=== PATIENT | female | born 1985 | race Caucasian/White ===

== ENCOUNTER → 2017-07-25 | Outpatient (CLI) | payer MEDICARE, OTHER ==
[~2017-07-25] MED LIST: HYDR-3240 PO; HYDR50CA PO; IBUP-1222 PO; PREN1TAB60 PO; SENN-1 PO; URSO300C27 PO
== END | disposition home or self-care (01) ==
LOC: CFH 13:27
PROVIDERS: ATTEND Obstetrics & Gynecology
DX: M79.605 Pain in left leg (principal); M79.89 Other specified soft tissue disorders; Z86.718 Personal history of other venous thrombosis and embolism

== ENCOUNTER 2017-08-05 15:31 | Emergency (ER) | payer MEDICARE, OTHER ==
[~2017-08-05] VITALS: Ht 162.6 cm; Wt 72.7 kg
[2017-08-05] MEDS ORDERED: METOCLOPRAMIDE 5 MG/ML, 2ML IVPush ONE (16:00)
[2017-08-05] MEDS ORDERED: SODIUM CHLORIDE FLUSH 10ML SYR IVF ONE (16:00)
[2017-08-05 16:14] LABS: BASOPHILS # (AUTO) 0.08 x10^3/uL (0-0.1); BASOPHILS % (AUTO) 1 % (0-1); EOSINOPHILS % (AUTO) 2 % (1-7); LYMPHOCYTES # (AUTO) 2.23 x10^3/uL (1-3.4); LYMPHOCYTES % (AUTO) 21 % (22-44); MD NO; MEAN CORPUSCULAR HEMOGLOBIN 30.4 pg (27.0-34.8); MEAN CORPUSCULAR HGB CONC 33.3 g/dL (32.4-35.8); MEAN CORPUSCULAR VOLUME 91.3 fL (80-100); MEAN PLATELET VOLUME 7.3 fL (7.4-10.4); MONOCYTES # (AUTO) 0.44 x10^3/uL (0.2-0.8); MONOCYTES % (AUTO) 4 % (2-9); NEUTROPHILS # (AUTO) 7.52 x10^3/uL (1.8-6.8); NEUTROPHILS % (AUTO) 72 % (42-75); PLATELET COUNT 397 x10^3/uL (130-400); RED BLOOD COUNT 5.06 x10^6/uL (3.82-5.3); RED CELL DISTRIBUTION WIDTH 12.6 % (9.6-15.2)
[2017-08-05 16:24] LABS: ALANINE AMINOTRANSFERASE 40 U/L (12-78); ALBUMIN 3.5 g/dL (3.4-5.0); ANION GAP 10 mmol/L (5-15); CHLORIDE 107 mmol/L (98-107); CREATININE 0.64 mg/dL (0.55-1.02)
[2017-08-05 16:25] LABS: ALKALINE PHOSPHATASE 78 U/L (45-117); BILIRUBIN,TOTAL 0.2 mg/dL (0.2-1.0); TOTAL PROTEIN 7.3 g/dL (6.4-8.2)
[2017-08-05] MEDS ORDERED: KETOROLAC 30 MG/1 ML IVPush ONE (16:30)
[2017-08-05] MEDS ORDERED: KETOROLAC 30 MG/1 ML ONE (16:33)
[2017-08-05] MEDS ORDERED: METOCLOPRAMIDE 5 MG/ML, 2ML ONE (16:33)
[2017-08-05] MEDS ORDERED: OMNIPAQUE 350 MG/ML, 100ML BOTTLE ONE (17:37)
[2017-08-05 18:02] LABS: CULTURE INDICATED? YES; MICROSCOPIC INDICATED
[2017-08-05] MEDS ORDERED: SODIUM CHLORIDE 0.9% 1,000ML IVBOLUS ONE (18:30)
[2017-08-05] MEDS ORDERED: CEFTRIAXONE PMX 1GM/50ML 50 ML IV ONE (19:00)
[2017-08-05] MEDS ORDERED: CEFTRIAXONE PMX 1GM/50ML 50 ML ONE (19:01)
[2017-08-05 20:00] VITALS: BP 108/54
== END 2017-08-05 20:04 | disposition home or self-care (01) ==
LOC: ED 19:58
DX: N10 Acute pyelonephritis (principal); R19.7 Diarrhea, unspecified; R51 Headache; Z90.49 Acquired absence of other specified parts of digestive tract; Z86.718 Personal history of other venous thrombosis and embolism
CPT/HCPCS: 36415; 71045; 74177; 76700; 80053; 81001; 83690; 85025; 87086; 87147; 93005; 96361; 96365; 96375; 99285; J0696; J1885; J2765; J7030; Q9967

== ENCOUNTER → 2018-04-07 | Outpatient (CLI) | payer MEDICARE, OTHER ==
[~2018-04-07] MED LIST changes: -SENN-1 PO; +SENN-92 PO
== END | disposition home or self-care (01) ==
LOC: CFH 16:05
PROVIDERS: ATTEND Family Medicine
DX: M47.817 Spondylosis without myelopathy or radiculopathy, lumbosacral region (principal); M48.061 Spinal stenosis, lumbar region without neurogenic claudication; M51.26 Other intervertebral disc displacement, lumbar region
CPT/HCPCS: 72148

== ENCOUNTER 2018-04-23 18:26 | Emergency (ER) | payer MEDICARE, OTHER ==
[~2018-04-23] VITALS: Ht 160 cm; Wt 72.4 kg
[2018-04-23 18:35] VITALS: BP 105/63
== END 2018-04-23 20:09 | disposition home or self-care (01) ==
LOC: ED 19:14
DX: N61.1 Abscess of the breast and nipple (principal); Z85.3 Personal history of malignant neoplasm of breast; Z90.49 Acquired absence of other specified parts of digestive tract; Z86.718 Personal history of other venous thrombosis and embolism
CPT/HCPCS: 76642; 99284

== ENCOUNTER → 2018-05-26 | Outpatient (CLI) | payer MEDICARE, OTHER | END | disposition home or self-care (01) | LOC: CFH 13:16 | PROVIDERS: ATTEND Nurse Practitioner Family | DX: M47.812 Spondylosis without myelopathy or radiculopathy, cervical region (principal); M48.02 Spinal stenosis, cervical region; M25.78 Osteophyte, vertebrae; R20.2 Paresthesia of skin | CPT/HCPCS: 70551; 72141 ==

== ENCOUNTER 2018-07-04 14:50 | Outpatient (CLI) | payer MEDICARE, OTHER | END 2018-07-04 23:59 | disposition home or self-care (01) | LOC: CFH 14:50 | PROVIDERS: ATTEND Physician Assistant Medical | DX: I37.1 Nonrheumatic pulmonary valve insufficiency (principal); R07.9 Chest pain, unspecified; I10 Essential (primary) hypertension | CPT/HCPCS: 93306 ==

== ENCOUNTER 2018-09-19 17:17 | Emergency (ER) | payer MEDICARE, OTHER ==
[~2018-09-19] VITALS: Ht 160 cm; Wt 71.8 kg
[~2018-09-19 17:17] MED LIST changes: +CBD PO; +LACT1CAP35 PO; +[UNRECOGNIZED DRUG - OTHER] PO; +[UNRECOGNIZED DRUG - OTHER] PO; +[UNRECOGNIZED DRUG - OTHER] PO; +[UNRECOGNIZED DRUG - OTHER] PO; +[UNRECOGNIZED DRUG - OTHER] PO; +[UNRECOGNIZED DRUG - OTHER] PO; +albuterol inhaler; +ashwagandha PO; +turmeric PO
--- NOTE | 2018-09-19 17:48 | NUR ---
FEVER, NAUSEA, FATIGUE, BLACK TARRY STOOL POST SURGERY HYSTEROSCOPY WITH D+C ON 09/17/2018
--- NOTE | 2018-09-19 18:39 | NUR ---
PT AMBULATORY TO THE BATHROOM WITH STEADY GAIT TO PROVIDE URINE SAMPLE.
[2018-09-19 18:44] LABS: BASOPHILS # (AUTO) 0.03 x10^3/uL (0-0.1); BASOPHILS % (AUTO) 0 % (0-1); EOSINOPHILS # (AUTO) 0.26 x10^3/uL (0-0.4); EOSINOPHILS % (AUTO) 3 % (1-7); LYMPHOCYTES # (AUTO) 1.69 x10^3/uL (1-3.4); LYMPHOCYTES % (AUTO) 17 % (22-44); MD NO; MEAN CORPUSCULAR HEMOGLOBIN 30.7 pg (27.0-34.8); MEAN CORPUSCULAR HGB CONC 32.6 g/dL (32.4-35.8); MEAN CORPUSCULAR VOLUME 94.1 fL (80-100); MEAN PLATELET VOLUME 8.3 fL (7.4-10.4); MONOCYTES # (AUTO) 0.69 x10^3/uL (0.2-0.8); MONOCYTES % (AUTO) 7 % (2-9); NEUTROPHILS # (AUTO) 7.15 x10^3/uL (1.8-6.8); NEUTROPHILS % (AUTO) 73 % (42-75); PLATELET COUNT 255 x10^3/uL (130-400); RED BLOOD COUNT 4.47 x10^6/uL (3.82-5.3); RED CELL DISTRIBUTION WIDTH 13.4 % (9.6-15.2)
[2018-09-19 19:00] LABS: ALBUMIN 3.7 g/dL (3.4-5.0); ANION GAP 6 mmol/L (5-15); CALCIUM 8.9 mg/dL (8.5-10.1); CHLORIDE 111 mmol/L (98-107)
[2018-09-19 19:06] LABS: ALANINE AMINOTRANSFERASE 118 U/L (12-78); ALKALINE PHOSPHATASE 82 U/L (45-117); BILIRUBIN,TOTAL 0.5 mg/dL (0.2-1.0); CREATININE 0.77 mg/dL (0.55-1.02); TOTAL PROTEIN 6.8 g/dL (6.4-8.2)
--- NOTE | 2018-09-19 19:06 | NUR ---
REPORT TO RAHUL LUA
--- NOTE | 2018-09-19 19:07 | NUR ---
REPORT RECEIVED FROM TIMOTHY LUA.
[2018-09-19 19:08] LABS: MICROSCOPIC AUTO
[2018-09-19 19:20] LABS: CULTURE INDICATED? YES
[2018-09-19] MEDS ORDERED: ONDANSETRON ODT 4 MG ONE (20:45)
--- NOTE | 2018-09-19 20:48 | NUR ---
PT MEDICATED PER EMAR FOR NAUSEA. PT TOLERATED WELL.
[2018-09-19] MEDS ORDERED: ONDANSETRON ODT 4 MG PO ONE (21:00)
--- NOTE | 2018-09-19 21:45 | NUR ---
PT IN US NOW.
--- NOTE | 2018-09-19 21:50 | NUR ---
PT BACK TO ROOM FROM US NOW.
[2018-09-19 21:57] VITALS: BP 104/61
[2018-09-19] MEDS ORDERED: OMNIPAQUE 350 MG/ML, 100ML BOTTLE ONE (23:00)
--- NOTE | 2018-09-19 23:01 | NUR ---
PT TO CT NOW.
--- NOTE | 2018-09-19 23:09 | NUR ---
PT BACK TO ROOM FROM CT
--- NOTE | 2018-09-19 23:54 | NUR ---
PT GIVEN DC INSTRUCTIONS AND SCRIPTS. PT EDUCATED REGARDING DC MEDICATION. PT'S AOX4. RESPS EVEN AND UNLABORED. NO ACUTE DISTRESS AT DC. PT AMB TO DC WITH STEADY GAIT.
== END 2018-09-19 23:55 | disposition home or self-care (01) ==
LOC: ED 17:36
DX: R10.13 Epigastric pain (principal); R11.0 Nausea; R53.1 Weakness; Z87.891 Personal history of nicotine dependence; Z90.49 Acquired absence of other specified parts of digestive tract; Z86.718 Personal history of other venous thrombosis and embolism
CPT/HCPCS: 36415; 74177; 76856; 80053; 81001; 83690; 84703; 85025; 87077; 87086; 93005; 99284; Q0162; Q9967; 87186

== ENCOUNTER 2019-04-28 08:09 | Emergency (ER) | payer MEDICARE, OTHER ==
[~2019-04-28] VITALS: Ht 160 cm; Wt 64.4 kg
[2019-04-28 08:13] VITALS: BP 122/63
--- NOTE | 2019-04-28 08:28 | NUR ---
pt ambulated to room with a steady gait. requested pt to change into a gown, pt refused to change but placed gown on top of clothes. pt in with c/o inability to take a deep breath "to the lower lungs" as well as numbness/tinlging to lips. MD at bedside
--- NOTE | 2019-04-28 08:59 | NUR ---
REPORT RECEIVED FROM CHANELL OBREGON. CARE ASSUMED. PT IN ROOM, BACK FROM XRAY. PT ON MONITOR, ALL RESULTS BACK AT THIS TIME, CHART UP FOR RECHECK.
--- NOTE | 2019-04-28 09:45 | NUR ---
Patient/Caregiver given discharge instructions and they have confirmed that they understand the instructions. Patient ambulatory with steady gait.
== END 2019-04-28 09:46 | disposition home or self-care (01) ==
LOC: ED 09:17
DX: J98.01 Acute bronchospasm (principal); R06.09 Other forms of dyspnea; R94.31 Abnormal electrocardiogram [ECG] [EKG]; R00.0 Tachycardia, unspecified
CPT/HCPCS: 71046; 93005; 99283

== ENCOUNTER → 2019-05-01 | Outpatient (CLI) | payer MEDICARE, OTHER | END | disposition home or self-care (01) | LOC: CFH 09:19 | PROVIDERS: ATTEND Nurse Practitioner Family | DX: K42.9 Umbilical hernia without obstruction or gangrene (principal) | CPT/HCPCS: 76705 ==

== ENCOUNTER 2019-08-21 12:38 | Emergency (ER) | payer MEDICARE, OTHER ==
[~2019-08-21] VITALS: Ht 160 cm; Wt 66.8 kg
--- NOTE | 2019-08-21 13:24 | NUR ---
Pt here for left sided abd pain and periumbilicus with epigastric pain. Pt reports started a few days ago with no improvement. 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 Pt reports she does nto really like western medicine as a more holisitic approach works better for her. Pt denies any trauma. Pt reports she is not constipated. Pt also reports extensive medical hx that she is currently managing very well. Pt reports no diarrhea. Pt on monitors, urine specimen provided and sent to lab. Awaiting further orders.
[2019-08-21] MEDS ORDERED: ONDANSETRON 2MG/ML, 2ML IVPush ONE (13:30)
[2019-08-21] MEDS ORDERED: MAALOX/HYOSCYAMINE/LIDOCAINE 45 ML BTL PO ONE (13:30)
[2019-08-21 13:37] LABS: BASOPHILS # (AUTO) 0.05 x10^3/uL (0-0.1); BASOPHILS % (AUTO) 1 % (0-1); EOSINOPHILS # (AUTO) 0.29 x10^3/uL (0-0.4); EOSINOPHILS % (AUTO) 4 % (1-7); LYMPHOCYTES # (AUTO) 1.62 x10^3/uL (1-3.4); LYMPHOCYTES % (AUTO) 23 % (22-44); MD NO; MEAN CORPUSCULAR HEMOGLOBIN 29.2 pg (27.0-34.8); MEAN CORPUSCULAR HGB CONC 32.5 g/dL (32.4-35.8); MEAN CORPUSCULAR VOLUME 89.8 fL (80-100); MEAN PLATELET VOLUME 7.7 fL (7.4-10.4); MONOCYTES % (AUTO) 7 % (2-9); NEUTROPHILS # (AUTO) 4.52 x10^3/uL (1.8-6.8); NEUTROPHILS % (AUTO) 65 % (42-75); PLATELET COUNT 301 x10^3/uL (130-400); RED BLOOD COUNT 4.47 x10^6/uL (3.82-5.3); RED CELL DISTRIBUTION WIDTH 14.6 % (9.6-15.2)
[2019-08-21] MEDS ORDERED: ONDANSETRON 2MG/ML, 2ML ONE (13:43)
[2019-08-21] MEDS ORDERED: KETOROLAC 30 MG/1 ML ONE (13:43)
[2019-08-21 13:46] VITALS: BP 103/48
[2019-08-21 13:46] LABS: ALBUMIN 3.7 g/dL (3.4-5.0); ANION GAP 7 mmol/L (5-15); CALCIUM 8.6 mg/dL (8.5-10.1); CHLORIDE 108 mmol/L (98-107)
[2019-08-21 13:46] LABS: MICROSCOPIC INDICATED
[2019-08-21 13:52] LABS: ALANINE AMINOTRANSFERASE 17 U/L (12-78); ALKALINE PHOSPHATASE 55 U/L (45-117); BILIRUBIN,TOTAL 0.4 mg/dL (0.2-1.0); CREATININE 0.84 mg/dL (0.55-1.02); TOTAL PROTEIN 7.2 g/dL (6.4-8.2)
[2019-08-21] MEDS ORDERED: KETOROLAC 30 MG/1 ML IVPush ONE (14:00)
--- NOTE | 2019-08-21 14:07 | NUR ---
Pt not wanting transvaginal U.S., pt wants only transabdominal, pt hydrating now via iv and U.S. to completed exam. inventory technician Jonny made aware.
[2019-08-21] MEDS ORDERED: LABETALOL 5MG/ML, 20ML ONE (14:45)
[2019-08-21] MEDS ORDERED: ENOXAPARIN 40 MG/0.4 ML ONE (16:22)
[2019-08-21] MEDS ORDERED: CEFTRIAXONE PMX 1GM/50ML 50 ML ONE (16:22)
--- NOTE | 2019-08-21 17:46 | NUR ---
Patient/Caregiver given discharge instructions and they have confirmed that they understand the instructions. Patient ambulatory with steady gait.
== END 2019-08-21 17:48 | disposition other institution (70) ==
LOC: ED 15:15
DX: R10.30 Lower abdominal pain, unspecified (principal); R10.2 Pelvic and perineal pain; Z90.49 Acquired absence of other specified parts of digestive tract
CPT/HCPCS: 36415; 74176; 80053; 81001; 83690; 84702; 85025; 87086; 96374; 99284; J1885

== ENCOUNTER 2019-08-22 19:00 | Emergency (ER) | payer MEDICARE, OTHER ==
[~2019-08-22] VITALS: Ht 160 cm; Wt 66.5 kg
--- NOTE | 2019-08-22 19:35 | NUR ---
PT AMB TO BR WITH STEADY GAIT. URINE CUP GIVEN.
--- NOTE | 2019-08-22 19:39 | NUR ---
FIRST CONTACT WITH PT. PT WAS HERE YESTERDAY FOR ABD PAIN. THAT HAS NOT RESOLVED AND NOW HAS BILAT ARM NUMBNESS W LEFT ARM AND HAND PAIN AND IS FEELING THE PULSES IN HER FEET. PT'S AOX4. RESPS EVEN AND UNLABORED. PT STATED "I'M JUST TIRED." BP/SPO2 MONITORS IN PLACE. CALL LIGHT WITHIN REACH. PA AT BEDSIDE TO EVALUATE AT THIS TIME.
--- NOTE | 2019-08-22 19:48 | NUR ---
PT PROVIDED URINE SAMPLE. URINE COLLECTED AND UA SENT.
[2019-08-22 20:05] LABS: MICROSCOPIC NOT IND
[2019-08-22 20:17] LABS: AMPHETAMINE SCREEN, URINE Negative (Negative); BARBITURATE SCREEN, URINE Negative (Negative); BENZODIAZEPINE SCREEN, URINE Negative (Negative); CANNABINOID SCREEN, URINE Positive (Negative); COCAINE SCREEN, URINE Negative (Negative); METHADONE SCREEN, URINE Negative (Negative); OPIATE SCREEN, URINE Negative (Negative)
[2019-08-22 20:20] LABS: BASOPHILS # (AUTO) 0.04 x10^3/uL (0-0.1); BASOPHILS % (AUTO) 0 % (0-1); EOSINOPHILS # (AUTO) 0.14 x10^3/uL (0-0.4); EOSINOPHILS % (AUTO) 1 % (1-7); LYMPHOCYTES # (AUTO) 1.83 x10^3/uL (1-3.4); LYMPHOCYTES % (AUTO) 19 % (22-44); MD NO; MEAN CORPUSCULAR HEMOGLOBIN 29.7 pg (27.0-34.8); MEAN CORPUSCULAR HGB CONC 32.8 g/dL (32.4-35.8); MEAN CORPUSCULAR VOLUME 90.5 fL (80-100); MEAN PLATELET VOLUME 7.9 fL (7.4-10.4); MONOCYTES # (AUTO) 0.43 x10^3/uL (0.2-0.8); MONOCYTES % (AUTO) 5 % (2-9); NEUTROPHILS # (AUTO) 7.11 x10^3/uL (1.8-6.8); NEUTROPHILS % (AUTO) 75 % (42-75); PLATELET COUNT 290 x10^3/uL (130-400); RED BLOOD COUNT 4.62 x10^6/uL (3.82-5.3); RED CELL DISTRIBUTION WIDTH 14.3 % (9.6-15.2)
[2019-08-22 20:27] LABS: ANION GAP 8 mmol/L (5-15); CALCIUM 8.8 mg/dL (8.5-10.1); CHLORIDE 112 mmol/L (98-107)
--- NOTE | 2019-08-22 20:27 | NUR ---
pt at bedside at this time. per pt's , pt doesn't remember her name and bod, 's name, and daughter's name at this time. this rn asked some aox4 questions. pt is aox3. pa notified.
[2019-08-22 20:33] LABS: ALANINE AMINOTRANSFERASE 18 U/L (12-78); ALKALINE PHOSPHATASE 58 U/L (45-117); BILIRUBIN,TOTAL 0.3 mg/dL (0.2-1.0); CREATININE 0.86 mg/dL (0.55-1.02); TOTAL PROTEIN 7.4 g/dL (6.4-8.2)
[2019-08-22] MEDS ORDERED: LORazepam 2 MG/ML, 1ML ONE (20:47)
--- NOTE | 2019-08-22 20:50 | NUR ---
pt agitated at this time. pt screaming "i can't see. i can't see anything." pa at bedside and ordered ativan 1mg IM.
--- NOTE | 2019-08-22 20:55 | NUR ---
pt medicated per pa verbal order at this time. pt tolerated well.
--- NOTE | 2019-08-22 20:56 | NUR ---
report given to oral yun.
--- NOTE | 2019-08-22 20:59 | NUR ---
REPORT FROM RAHUL GROSS MD AT BEDSIDE.PT APPEARS CALM AT THIS TIME. SPOUSE AT BEDSIDE.
--- NOTE | 2019-08-22 21:50 | NUR ---
pt at ct
[2019-08-22 22:00] VITALS: BP 101/68
[2019-08-22] MEDS ORDERED: LORazepam 2 MG/ML, 1ML IM ONE (22:00)
--- NOTE | 2019-08-22 22:44 | NUR ---
Caregiver given discharge instructions and they have confirmed that they understand the instructions. Patient ambulatory with steady gait.
== END 2019-08-22 22:47 | disposition home or self-care (01) ==
LOC: ED 21:49
DX: M79.602 Pain in left arm (principal); M79.601 Pain in right arm; R11.0 Nausea; R53.1 Weakness; R20.2 Paresthesia of skin; R41.0 Disorientation, unspecified; R07.89 Other chest pain; R94.31 Abnormal electrocardiogram [ECG] [EKG]; Z86.718 Personal history of other venous thrombosis and embolism; Z90.49 Acquired absence of other specified parts of digestive tract; Z87.891 Personal history of nicotine dependence
CPT/HCPCS: 36415; 70450; 71045; 80053; 80307; 81003; 84443; 84703; 85025; 93005; 96372; 99285; J2060

== ENCOUNTER 2019-10-19 16:13 | Emergency (ER) | payer MEDICARE, OTHER ==
[~2019-10-19] VITALS: Ht 160 cm; Wt 64.7 kg
[2019-10-19] MEDS ORDERED: SODIUM CHLORIDE 0.9% 1,000ML IVBOLUS ONE (17:00)
[2019-10-19] MEDS ORDERED: KETOROLAC 30 MG/1 ML IVPush ONE (17:00)
[2019-10-19] MEDS ORDERED: LORazepam 2 MG/ML, 1ML IVPush ONE (17:00)
--- NOTE | 2019-10-19 17:14 | NUR ---
TASK RN: PT C/O PAIN BILATERAL BREASTS AND UNDER ARMS, ABDOMINAL PAIN WITH DIARRHEA, SORES IN NOSE, CP WITH NUMBNESS BILATERAL ARMS, BURNING PALMS. IV ESTABLISHED WITH BOLUS INFUSING NOTED ON MAR
[2019-10-19] MEDS ORDERED: ONDANSETRON 2MG/ML, 2ML ONE (17:18)
[2019-10-19] MEDS ORDERED: KETOROLAC 30 MG/1 ML ONE (17:18)
[2019-10-19] MEDS ORDERED: LORazepam 2 MG/ML, 1ML ONE (17:18)
[2019-10-19 17:21] LABS: BASOPHILS # (AUTO) 0.03 x10^3/uL (0-0.1); BASOPHILS % (AUTO) 0 % (0-1); EOSINOPHILS # (AUTO) 0.16 x10^3/uL (0-0.4); EOSINOPHILS % (AUTO) 2 % (1-7); LYMPHOCYTES % (AUTO) 20 % (22-44); MD NO; MEAN CORPUSCULAR HEMOGLOBIN 29.3 pg (27.0-34.8); MEAN CORPUSCULAR HGB CONC 33.1 g/dL (32.4-35.8); MEAN CORPUSCULAR VOLUME 88.6 fL (80-100); MEAN PLATELET VOLUME 7.8 fL (7.4-10.4); MONOCYTES # (AUTO) 0.47 x10^3/uL (0.2-0.8); MONOCYTES % (AUTO) 5 % (2-9); NEUTROPHILS # (AUTO) 7.63 x10^3/uL (1.8-6.8); NEUTROPHILS % (AUTO) 74 % (42-75); PLATELET COUNT 356 x10^3/uL (130-400); RED BLOOD COUNT 4.76 x10^6/uL (3.82-5.3); RED CELL DISTRIBUTION WIDTH 13.3 % (9.6-15.2)
[2019-10-19 17:28] LABS: ALBUMIN 4.3 g/dL (3.4-5.0); ANION GAP 10 mmol/L (5-15); CALCIUM 9.4 mg/dL (8.5-10.1); CHLORIDE 109 mmol/L (98-107); CREATININE 0.91 mg/dL (0.55-1.02)
[2019-10-19] MEDS ORDERED: ONDANSETRON 2MG/ML, 2ML IVPush ONE (17:30)
--- NOTE | 2019-10-19 18:03 | NUR ---
PT RERQUESTED US OF HER BREASTS. EDUCATED PT ON THAT, THAT NEEDS TO BE COMPLETED AT OUTPATIENT CLINIC. PT WENT ON TO SAY THAT HER LYMPHNODES ARE HARD AND THEY NEED TO BE US. THIS RN RELAYED THIS TO THE PROVIDER
[2019-10-19] MEDS ORDERED: HYDROcodone/APAP 5/325 TABLET ONE (19:40)
[2019-10-19] MEDS ORDERED: HYDROcodone/APAP 5/325 TABLET PO ONE (20:00)
[2019-10-19 20:01] VITALS: BP 106/66
--- NOTE | 2019-10-19 20:01 | NUR ---
PT D/C WITH D/C SUMMARY AND SCRIPTS. ALL QUESTIONS ANSWERED. PIV D/C WITH TIP INTACT. PT VERBALIZES UNDERSTANDING OF D/C SUMMARY AND F/U. PT VSS AND UPDATED IN EMR. PT DENIES ANY OTHER NEEDS PERTAINING TO THIS VISIT.
== END 2019-10-19 20:04 ==
LOC: ED 19:55
DX: R07.89 Other chest pain (principal); F41.1 Generalized anxiety disorder; B34.9 Viral infection, unspecified; H92.03 Otalgia, bilateral; R00.0 Tachycardia, unspecified
CPT/HCPCS: 36415; 71045; 80048; 82040; 84443; 85025; 85379; 87081; 87880; 93005; 96361; 96374; 96375; 99285; J1885; J2060; J2405; J7030

== ENCOUNTER → 2019-10-23 | Outpatient (CLI) | payer MEDICARE, OTHER | END | disposition home or self-care (01) | LOC: CFH 12:05 | PROVIDERS: ATTEND Obstetrics & Gynecology | DX: N64.4 Mastodynia (principal); N63.0 Unspecified lump in unspecified breast | CPT/HCPCS: 76642; 77066; G0279 ==

== ENCOUNTER → 2019-11-06 | Outpatient (CLI) | payer MEDICARE, OTHER | END | disposition home or self-care (01) | LOC: RAD 16:22 | PROVIDERS: ATTEND Student in an Organized Health Care Education/Training Program | DX: R22.1 Localized swelling, mass and lump, neck (principal) | CPT/HCPCS: 70540 ==

== ENCOUNTER 2020-04-07 16:05 | Emergency (ER) | payer MEDICARE, OTHER ==
[~2020-04-07] VITALS: Ht 160 cm; Wt 65.7 kg
[~2020-04-07 16:05] MED LIST changes: +ACID1TAB7 PO; +HYDR-1067 PO; -HYDR-3240 PO
[2020-04-07 16:45] LABS: BASOPHILS % (AUTO) 1 % (0-1); EOSINOPHILS % (AUTO) 4 % (1-7); LYMPHOCYTES % (AUTO) 29 % (22-44); MEAN CORPUSCULAR HEMOGLOBIN 30.2 pg (27.0-34.8); MEAN CORPUSCULAR HGB CONC 33.2 g/dL (32.4-35.8); MEAN PLATELET VOLUME 7.2 fL (7.4-10.4); MONOCYTES % (AUTO) 7 % (2-9); NEUTROPHILS % (AUTO) 60 % (42-75); PLATELET COUNT 304 x10^3/uL (130-400); RED CELL DISTRIBUTION WIDTH 12.7 % (9.6-15.2)
[2020-04-07 16:49] LABS: MD NO
--- NOTE | 2020-04-07 16:52 | NUR ---
PT PRESENTS TO ED WITH C/O LEFT SIDED CHEST PAIN, DIZZINESS, LEFT ARM AND JAW PAIN, NAUSEA ONSET TODAY. PT NOTES SHE WAS HERE TWO DAYS AGO FOR MIGRAINE AND FEELS PAIN TO IV SITE (LEFT AC). EKG TAKEN IN TRIAGE. ALL MONITORS IN PLACE. 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 CALL LIGHT IN REACH. US IN PROGRESS AT BEDSIDE.
[2020-04-07 16:58] LABS: ALBUMIN 4.2 g/dL (3.4-5.0); ANION GAP 5 mmol/L (5-15); CHLORIDE 109 mmol/L (98-107)
--- NOTE | 2020-04-07 16:59 | NUR ---
BREAK RN NOTE: REPORT GIVEN TO PRIMARY RN ANDRADE WHO IS ASSUMING CARE.
[2020-04-07 17:02] LABS: TROPONIN I < 0.015 ng/mL (0.000-0.045)
--- NOTE | 2020-04-07 17:05 | NUR ---
pt getting us, no distress,
--- NOTE | 2020-04-07 17:28 | NUR ---
pt sitting, vss, husben and daughter at bed side
[2020-04-07 18:25] VITALS: BP 105/52
--- NOTE | 2020-04-07 18:26 | NUR ---
pt dc home, vss, no distress, commiunity resourses given, pt ambulated out with steady gait , daughter and husben at bedside,
== END 2020-04-07 18:39 | disposition home or self-care (01) ==
LOC: ED 18:15
DX: M79.622 Pain in left upper arm (principal); R11.2 Nausea with vomiting, unspecified; R51.9 Headache, unspecified; R00.0 Tachycardia, unspecified; R07.89 Other chest pain; Z90.49 Acquired absence of other specified parts of digestive tract; Z86.718 Personal history of other venous thrombosis and embolism; Z87.891 Personal history of nicotine dependence
CPT/HCPCS: 36415; 71045; 80048; 82040; 84484; 85025; 93005; 99285